=== PATIENT | male | born 1965 | race Caucasian/White ===

== ENCOUNTER 2017-08-20 23:06 | Inpatient (IN) | payer BC ==
[2017-08-20] MEDS ORDERED: fentaNYL PF VIAL 100 MCG/2 ML VIAL (23:43)
[2017-08-20] MEDS ORDERED: KETOROLAC 30 MG/ML INJ. (23:43)
[2017-08-20] MEDS: KETOROLAC 30 MG/ML INJ. IV (23:48)
[2017-08-20] MEDS: fentaNYL PF VIAL 100 MCG/2 ML VIAL IV (23:53)
[2017-08-21] MEDS: IV NORMAL SALINE 1000ML BAG 1,000 ML IV ×3 (00:31→18:34)
[2017-08-21] MEDS: MORPHINE SULFATE 4 MG/ML DISP.SYRIN. IV ×9 (00:31→23:27)
[2017-08-21 04:11] LABS: ADD MAN DIFF? NO
[2017-08-21 04:25] LABS: BASO % 0 % (0-3); EOS # 0.1 x10^3/uL (0.0-0.7); EOS % 1 % (0-3); HEMATOCRIT 41.8 % (39.0-53.0); HEMOGLOBIN 14.6 g/dL (13.0-17.5); LYMPH # 0.9 x10^3/uL (1.0-4.8); LYMPH % 9 % (24-48); MEAN CORPUSCULAR HEMOGLOBIN 37 pg (25-35); MEAN CORPUSCULAR HGB CONC 35 g/dL (31-37); MEAN CORPUSCULAR VOLUME 106 fL (79-100); MONO # 0.9 x10^3/uL (0.0-1.1); MONO % 9 % (0-9); NEUT # 8.6 x10^3uL (1.8-7.7); NEUT % 82 % (31-73); PLATELET COUNT 195 x10^3/uL (140-400); RED BLOOD COUNT 3.96 x10^6/uL (4.30-5.70); RED CELL DISTRIBUTION WIDTH 12.8 % (11.5-14.5); WHITE BLOOD COUNT 10.5 x10^3/uL (4.0-11.0)
[2017-08-21 04:27] LABS: PARTIAL THROMBOPLASTIN TIME 29 SEC (24-38); PROTHROMBIN TIME PATIENT 12.4 SEC (11.7-14.0)
[2017-08-21 04:29] LABS: ANION GAP 11 (6-14); BLOOD UREA NITROGEN 14 mg/dL (8-26); CALCIUM 8.1 mg/dL (8.5-10.1); CARBON DIOXIDE 27 mmol/L (21-32); CHLORIDE 107 mmol/L (98-107); CREATININE 0.7 mg/dL (0.7-1.3); GLUCOSE 118 mg/dL (70-99); POTASSIUM 3.6 mmol/L (3.5-5.1); SODIUM 145 mmol/L (136-145)
[2017-08-21] MEDS: ENOXAPARIN 40 MG/0.4 ML SYRINGE. SQ (12:00)
[2017-08-21] MEDS: amLODIPine BESYLATE 10 MG TABLET PO (15:28)
[2017-08-21] MEDS: CARVEDILOL 12.5 MG TABLET. PO ×2 (15:28→16:47)
[2017-08-21] MEDS: LISINOPRIL 20 MG TABLET PO (16:00)
[2017-08-21 20:12] LABS: MRSA BY PCR Negative (Negative)
[2017-08-22] MEDS: MORPHINE SULFATE 4 MG/ML DISP.SYRIN. IV ×4 (02:56→13:48)
[2017-08-22] MEDS ORDERED: ONDANSETRON ODT 4 MG TAB.RAPDIS. PO (08:30)
[2017-08-22] MEDS ORDERED: ONDANSETRON PF 4 MG/2 ML VIAL. IV (08:30)
[2017-08-22] MEDS ORDERED: ACETAMINOPHEN 500 MG TABLET PO (08:30)
[2017-08-22] MEDS: CHOLECALCIFEROL (VITAMIN D3) 5,000 UNIT CAPSULE PO (08:54)
[2017-08-22] MEDS: CARVEDILOL 12.5 MG TABLET. PO ×2 (08:54→17:32)
[2017-08-22] MEDS: amLODIPine BESYLATE 10 MG TABLET PO (08:54)
[2017-08-22] MEDS: ENOXAPARIN 40 MG/0.4 ML SYRINGE. SQ (12:03)
[2017-08-22] MEDS ORDERED: ONDANSETRON PF 4 MG/2 ML VIAL. (14:21)
[2017-08-22] MEDS ORDERED: MIDAZOLAM HCL/PF 2 MG/2 ML VIAL. (14:21)
[2017-08-22] MEDS ORDERED: DEXAMETHASONE SOD PHOS 20 MG/5 ML VIAL. (14:21)
[2017-08-22] MEDS ORDERED: FAMOTIDINE 20 MG/2 ML VIAL (14:21)
[2017-08-22] MEDS ORDERED: fentaNYL PF VIAL 100 MCG/2 ML VIAL (14:21)
[2017-08-22] MEDS ORDERED: PROPOFOL 20 ML IV (14:21)
[2017-08-22] MEDS ORDERED: LIDOCAINE 2% PF Vial for OR 5 ML VIAL. (14:21)
[2017-08-22] MEDS ORDERED: SEVOFLURANE 31 TO 60 MINUTES. IH (15:35)
[2017-08-22] MEDS ORDERED: PROCHLORPERAZINE 10 MG/2 ML VIAL. IV (16:30)
[2017-08-22] MEDS ORDERED: MIDAZOLAM HCL/PF 2 MG/2 ML VIAL. IV (16:30)
[2017-08-22] MEDS ORDERED: diphenhydrAMINE 50 MG/ML VIAL IV ×2 (16:30)
[2017-08-22] MEDS ORDERED: LIDOCAINE 1% PF 2 ML VIAL. ID (16:30)
[2017-08-22] MEDS ORDERED: fentaNYL PF VIAL 100 MCG/2 ML VIAL IV (16:30)
[2017-08-22] MEDS: fentaNYL PF VIAL 100 MCG/2 ML VIAL IV ×2 (16:35→16:52)
[2017-08-22] MEDS ORDERED: MORPHINE SULFATE 4 MG/ML DISP.SYRIN. IV (16:45)
[2017-08-22] MEDS: traMADol 50 MG TABLET PO (17:31)
[2017-08-22] MEDS: LISINOPRIL 20 MG TABLET PO (17:32)
[2017-08-22] MEDS: IV RINGERS,LACTATED 1000ML 1,000 ML IV (17:36)
[2017-08-22] MEDS ORDERED: ACETAMINOPHEN 325 MG TABLET. PO (17:45)
[2017-08-22] MEDS: DOCUSATE SODIUM 100 MG CAPSULE. PO (20:59)
[2017-08-23 04:38] LABS: HEMATOCRIT 39.5 % (39.0-53.0); HEMOGLOBIN 14.1 g/dL (13.0-17.5); MEAN CORPUSCULAR HGB CONC 36 g/dL (31-37)
[2017-08-23 05:06] LABS: ANION GAP 3 (6-14); BLOOD UREA NITROGEN 12 mg/dL (8-26); CALCIUM 8.5 mg/dL (8.5-10.1); CARBON DIOXIDE 32 mmol/L (21-32); CHLORIDE 103 mmol/L (98-107); CREATININE 0.7 mg/dL (0.7-1.3); GLUCOSE 137 mg/dL (70-99); POTASSIUM 4.2 mmol/L (3.5-5.1); SODIUM 138 mmol/L (136-145)
[2017-08-23] MEDS: traMADol 50 MG TABLET PO ×2 (05:46→12:21)
[2017-08-23] MEDS: CARVEDILOL 12.5 MG TABLET. PO (08:28)
[2017-08-23] MEDS: DOCUSATE SODIUM 100 MG CAPSULE. PO (08:28)
[2017-08-23] MEDS: CHOLECALCIFEROL (VITAMIN D3) 5,000 UNIT CAPSULE PO (08:28)
[2017-08-23] MEDS: MORPHINE SULFATE 4 MG/ML DISP.SYRIN. IV (08:28)
[2017-08-23] MEDS: amLODIPine BESYLATE 10 MG TABLET PO (08:29)
[2017-08-23] MEDS: ENOXAPARIN 40 MG/0.4 ML SYRINGE. SQ (12:00)
== END 2017-08-23 12:35 | disposition home or self-care (01) | DRG 482 ==
LOC: ER 23:06 → 4 NORTH 08-21 00:06
PROVIDERS: Internal Medicine
PROC: 0QS604Z Reposition Right Upper Femur with Internal Fixation Device, Open Approach (ICD-10-PCS; principal; 2017-08-22 14:44)
DX: S72.011A Unspecified intracapsular fracture of right femur, initial encounter for closed fracture (principal); E55.9 Vitamin D deficiency, unspecified; F17.210 Nicotine dependence, cigarettes, uncomplicated; I10 Essential (primary) hypertension; W18.09XA Striking against other object with subsequent fall, initial encounter; Y93.89 Activity, other specified; Y92.89 Other specified places as the place of occurrence of the external cause; Y99.8 Other external cause status; Z82.49 Family history of ischemic heart disease and other diseases of the circulatory system; Z88.5 Allergy status to narcotic agent
CPT/HCPCS: 36415; 71045; 72192; 73502; 73552; 76000; 80048; 82306; 85014; 85018; 85025; 85610; 85730; 87641; 93005; 97161-GP; 97165-GO; C1713; C1887; J0690; J1100; J1885; J2250; J2270; J2405; J2704; J3010; J7030; S0028